=== PATIENT | female | born 1940 | race Caucasian/White ===

== ENCOUNTER → 2016-04-19 | Outpatient (CLI) | payer OTHER ==
--- NOTE | 2016-04-19 17:40 | DX ---
Lumbar spine AP lateral flexion and extension 4 views 0816 hours. History: Left foot drop. Surgery scheduled for May,. Vertebral body heights are well-maintained. In neutral position, there is minimal about 3 mm of poste rior subluxation of L1 on L2 and of L2 on L3 with about 5 mm of anterior subluxation of L3 on L4 and of L5 on S1. This does not change significantly with flexion and extension. There is mild levoscoliosis thoracolumbar junction with associated mild disk space narrowing more pro minent along the inner aspect of the curvature on the right-side of T12-L1 and L1-L2 with mild to mod erate diffuse disk space narrowing at L2-L3, and L3-L4 as well as at L5-S1. The disk at L4-L5 appears relatively normal. Underlying facet hypertrophy is suspected throughout the lumbar spine and is mild in degree except for moderate facet hypertrophy at L4-L5 and L5-S1 bilaterally. There are no lytic o r sclerotic osseous lesions. Impression: 1. Mild subluxations that do not change with flexion and extension as detailed above. 2. Mild to moderate disk space narrowing throughout the lumbar spine except for normal disk appearanc e at L4-L5 although there is facet hypertrophy suspected throughout the lumbar spine most prominent a t L4-L5 and L5-S1.
== END ==
LOC: FIMAGING 08:11
PROVIDERS: ATTEND Neurological Surgery
DX: M43.16 Spondylolisthesis, lumbar region (principal); M48.06 Spinal stenosis, lumbar region; M51.36 Other intervertebral disc degeneration, lumbar region; M41.26 Other idiopathic scoliosis, lumbar region

== ENCOUNTER → 2016-04-19 | Outpatient (CLI) | payer OTHER ==
--- NOTE | 2016-04-19 15:33 | MR ---
MRI of the Lumbar Spine (Without Contrast) Clinical Indications: Evaluate for lumbar spinal stenosis. Technique: Sagittal and axial T1 and T2 MR sequences of the lumbar spine without contrast. Findings: T12-L1: Disk desiccation with broad-based central and right paracentral disk bulging, contributing to mild right neural foraminal stenosis. Central canal is preserved. L1-L2: Disk desiccation and broad-based annular bulging, without discrete disk prolapse or neural imp ingement. L2-L3: Disk desiccation and moderate intervertebral disk height loss, with mild acquired central gail l stenosis, without discrete disk prolapse or neural impingement. Foramina remain patent, with mild r ight-sided foraminal stenosis. L3-L4: 4 mm degenerative anterolisthesis of L3 upon L4, associated with broad-based annular bulging a nd ligamentum flavum and facet degenerative hypertrophy, with secondary severe acquired central canal stenosis. There is tethering of the cauda equina within the thecal sac. L4-L5: Disk desiccation and annular bulging anteriorly with ligamentum flavum and facet degenerative hypertrophy posteriorly, contributing to severe acquired central canal stenosis. The neural foramina are moderately stenotic bilaterally, secondary to annular bulging. L5-S1: Minimal degenerative anterolisthesis of L5 upon S1, with broad-based annular bulging, with sec ondary moderate acquired central canal stenosis. Neural foramina are mildly narrow bilaterally, secon teresa to annular bulging and grade 1 spondylolisthesis. Impression: 1. Multilevel lumbar degenerative disk disease. There is severe acquired central canal stenosis at L3 -L4 with tethering of the cauda equina. Severe central canal stenosis also present at L4-L5. 2. Moderate acquired central canal stenosis at L5-S1, associated with grade 1 spondylolisthesis and b ilateral neural foraminal stenosis. 3. Other level findings as above.
== END ==
LOC: FIMAGING 07:00
PROVIDERS: ATTEND Neurological Surgery
DX: M43.16 Spondylolisthesis, lumbar region (principal); M51.36 Other intervertebral disc degeneration, lumbar region; M41.26 Other idiopathic scoliosis, lumbar region; M48.06 Spinal stenosis, lumbar region

== ENCOUNTER → 2016-04-25 | Outpatient (CLI) | payer OTHER | LOC: BHFA 08:30 | PROVIDERS: ATTEND Internal Medicine Cardiovascular Disease | DX: I25.10 Atherosclerotic heart disease of native coronary artery without angina pectoris (principal) | CPT/HCPCS: 78452; 93017; A9500 ==

== ENCOUNTER → 2016-04-27 | Outpatient (CLI) | payer OTHER | LOC: BHFA 09:15 | PROVIDERS: ATTEND Internal Medicine Cardiovascular Disease | DX: I25.10 Atherosclerotic heart disease of native coronary artery without angina pectoris (principal) ==

== ENCOUNTER 2016-05-10 08:55 | Inpatient (IN) | payer OTHER ==
[~2016-05-10 08:55] MED LIST: CHLORHEXIDINE GLUC HIBICLENS 118 ML BTL TP ONE; ceFAZolin 2 GM/DEXTROSE 100 ML IV ONE
[2016-05-10] MEDS ORDERED: DEXMEDETOMIDINE HCL 200 MCG/2 ML VIAL IV ONE (09:35)
[2016-05-10] MEDS ORDERED: CEFAZOLIN 2 GM/DEXTROSE/100 ML BAG IV ONE (09:52)
[2016-05-10] MEDS ORDERED: LR 1,000 ML IV ONE (10:19)
[2016-05-10] MEDS ORDERED: LOPERAMIDE HCL 2 MG CAP PO PRN (11:02)
[2016-05-10] MEDS ORDERED: LACTULOSE 20 GM/30 ML UDCUP PO PRN (11:02)
[2016-05-10] MEDS ORDERED: NALOXONE HCL 0.4 MG/ML INJ IVP PRN (11:02)
[2016-05-10] MEDS ORDERED: TEMAZEPAM 15 MG CAP PO PRN (11:02)
[2016-05-10] MEDS ORDERED: POLYETHYLENE GLYCOL 3350 17 GM PKT PO PRN (11:02)
[2016-05-10] MEDS ORDERED: DIAZEPAM 10 MG/2 ML SYR IVP PRN (11:02)
[2016-05-10] MEDS ORDERED: BISACODYL 10 MG SUPP PR PRN (11:02)
[2016-05-10] MEDS ORDERED: ONDANSETRON 4 MG/2 ML VIAL IVP PRN (11:02)
[2016-05-10] MEDS ORDERED: diphenhydrAMINE 25 MG CAP PO PRN (11:02)
[2016-05-10] MEDS ORDERED: HYDROmorphONE/DILAUDID 1 MG/ML SYR IVP PRN (11:02)
[2016-05-10] MEDS ORDERED: MAGNESIUM HYDROXIDE 30 ML UDCUP PO PRN (11:02)
[2016-05-10] MEDS ORDERED: BUPIVACAINE/EPI 0.25% 30 ML SDV ONE (11:04)
[2016-05-10] MEDS ORDERED: THROMBIN (RECOMBINANT) 5,000 UNIT VIAL TP ONE (11:04)
[2016-05-10] MEDS ORDERED: BACITRACIN 50,000 UNITS/10 ML SYR IRR ONE ×3 (11:05→14:32)
[2016-05-10] MEDS ORDERED: MIDAZOLAM 2 MG/2 ML VIAL ONE (11:19)
[2016-05-10] MEDS ORDERED: DEXAMETHASONE 4 MG/ML VIAL ONE (11:25)
[2016-05-10] MEDS ORDERED: LIDOCAINE 2% 5 ML SDV ONE (11:25)
[2016-05-10] MEDS ORDERED: ROCURONIUM 50 MG/5 ML VIAL ONE (11:25)
[2016-05-10] MEDS ORDERED: KETAMINE 100 MG/10 ML SYR IVP ONE (11:26)
[2016-05-10] MEDS ORDERED: PROPOFOL/EMULSION 500 MG/50 ML BOTTLE IV ONE ×4 (11:26→15:41)
[2016-05-10] MEDS ORDERED: fentaNYL 250 MCG/5 ML INJ ONE (11:26)
[2016-05-10] MEDS ORDERED: epHEDrine SULFATE 10 MG/ML SYR ONE (11:46)
[2016-05-10] MEDS ORDERED: GLYCOPYRROLATE 0.2 MG/1 ML VIAL ONE (11:47)
[2016-05-10] MEDS ORDERED: PHENYLEPHRINE HCL 100 MCG/ML SYR ONE ×2 (11:57→16:21)
[2016-05-10] MEDS ORDERED: ceFAZolin 1 GM VIAL ONE (14:59)
[2016-05-10] MEDS ORDERED: ALBUMIN 5% 250 ML BOTTLE IV ONE (16:24)
[2016-05-10] MEDS ORDERED: ONDANSETRON 4 MG/2 ML VIAL ONE (17:28)
--- NOTE | 2016-05-10 18:23 | DX ---
Fluoroscopy Indication: Intraoperative. Findings: 6.4 seconds of intraoperative fluoroscopy, 8.37 mGy, was utilized by Dr. Jakob Mtz for [facility] spinal surgery. Additionally, 3 spins were obtained with a total dose of 549 mGy per rotation. Two digital radiographs were obtained to assess for a missing small needle. No definite needle is akshat ntified on the single fluoroscopic study. This information was conveyed to the Operating Room. Orthopedic hardware is in place.
--- NOTE | 2016-05-10 20:01 | POSTOPPROG ---
Post Op Note Date of Operation: 05/10/16 Surgeon: Jef Mtz Subacute Nurse: Reynaldo Camargo PA-C, Yudy Nesbitt PA-C Anesthesia: GET(General Endotracheal) Pre-op Diagnosis: Lumbar stenosis Post-op Diagnosis: Lumbar stenosis Procedure: L3-S1 fusion with decompression Inf/Abcess present in the surg proc area at time of surgery?: No Complications: Durotomy Plan Plan: 75 yo female s/p L3-S1 PSF with decompression, durotomy - neuro checks - lay flat till Sunday morning - no drains - PT/OT and x-rays on hold until can be upright - continue ayala due to immobility Exam Seen in recovery. Requiring BiPAP Moving all extremities
[2016-05-10] MEDS ORDERED: ROSUVASTATIN CALCIUM 20 MG TAB PO SCH (21:00)
[2016-05-10] MEDS: FAMOTIDINE 20 MG/NACL 50 ML IV SCH (21:38)
[2016-05-10] MEDS: NS W/ 20 KCl/L 1,000 ML IV SCH (21:38)
[2016-05-10] MEDS: morphINE SR 15 MG TAB PO SCH (23:01)
[2016-05-10] MEDS: SENNOSIDES/DOCUSATE SODIUM TAB PO SCH (23:01)
[2016-05-10] MEDS: LOSARTAN POTASSIUM 50 MG TAB PO SCH (23:02)
[2016-05-11] MEDS: HYDROmorphONE/DILAUDID 6 MG/30 ML PCA IV PRN (02:04)
[2016-05-11 04:24] LABS: % IMMATURE GRANULYOCYTES 0.3 % (0.0-1.1); ABSOLUTE IMMATURE GRANULOCYTES 0.05 10^3/uL (0.00-0.10); ADD DIFF? NO; ADD MORPH? NO; ADD SCAN? NO; ATYPICAL LYMPHOCYTE FLAG 0 (0-99); FRAGMENT RBC FLAG 0 (0-99); HEMATOCRIT 35.1 % (38.0-47.0); HEMOGLOBIN 11.8 g/dL (12.6-16.3); LEFT SHIFT FLG 0 (0-99); LIPEMIA HEMOLYSIS FLAG 80 (0-99); MEAN CELL HEMOGLOBIN 32.1 pg (27.9-34.1); MEAN CELL HEMOGLOBIN CONCENTR. 33.6 g/dL (32.4-36.7); MEAN CELL VOLUME 95.4 fL (81.5-99.8); MEAN PLATELET VOLUME 10.7 fL (8.7-11.7); PLATELET CLUMPS FLAG 0 (0-99); PLATELET COUNT 171 10^3/uL (150-400); RED BLOOD CELL COUNT 3.68 10^6/uL (4.18-5.33); RED CELL DISTRIBUTION WIDTH 12.3 % (11.5-15.2)
[2016-05-11 04:38] LABS: ANION GAP 4 mEq/L (8-16); CALCIUM 8.2 mg/dL (8.5-10.4); CARBON DIOXIDE 25 mEq/l (22-31); CHLORIDE 111 mEq/L (97-110); CREATININE 0.5 mg/dL (0.6-1.0); GLOMERULAR FILTRATION RATE > 60; GLUCOSE 97 mg/dL (70-100); POTASSIUM 4.3 mEq/L (3.5-5.2); SODIUM 140 mEq/L (134-144)
--- NOTE | 2016-05-11 05:51 | GOP ---
[f rep st] OPERATIVE REPORT DATE OF OPERATION: 05/10/2016 SURGEON: Jakob Mtz MD BOWLING ALLEY MECHANIC: Cooper Camargo PA-C. Secondary operating room assistant, FLORY Augustin. PREOPERATIVE DIAGNOSIS: Lumbar spondylolisthesis with degenerative scoliosis L3-4, L4-5, L5-S1. Sev ere left lower extremity weakness and radiculopathy. Spinal stenosis at L3-4, L4-5, L5-S1. POSTOPERATIVE DIAGNOSIS: Lumbar spondylolisthesis with degenerative scoliosis L3-4, L4-5, L5-S1. Se megha left lower extremity weakness and radiculopathy. Spinal stenosis at L3-4, L4-5, L5-S1, with the addition of dural adhesions rostral arches of each of the lumbar bones L3-L4-L5-S1. PROCEDURE PERFORMED: Posterolateral arthrodesis only L3-4, L4-5, L5-S1 (47722), 53760 x 2, wide lumb ar laminectomy at L3-4, L4-5 for spinal stenosis, and left L5-S1 roz laminectomy for spinal stenosis and foraminal stenosis, with complete facetectomies left L3-4, L4-5, L5-S1 (40865, 33340 x2), repair of large dural defect at the rostral arch of L5 extending down to S1, without additional laminectomy , and repair of 2nd large dural defect with dural graft material at the rostral arch of L4. These du ral defects measured approximately 1 cm x 3 cm at L5-S1, and 1 cm x 14 mm at L4, spanning the width o f the spinal canal at that level, microscope, same incision bone graft harvest, spinal stereotaxy. FINDINGS: ESTIMATED BLOOD LOSS: 500 cc. INDICATIONS: Ms. White is a 75-year-old, with terrible left leg weakness and a degenerative scolioti c curve, and critical spinal stenosis at L3-4, L4-5 and even left foraminal stenosis, L5-S1, who hetal red an attempt to make this better. We suggested an attempt at correcting her degenerative scoliotic curve as well as laminectomies L3-4, L4-5, L5-S1. She understood that the weakness may be permanent , but I was still optimistic that she may regain some of this. Without surgery I felt that it would grow worse. Risk of nerve injury and spinal fluid leak was discussed. She knew there was risk of ps eudoarthrosis, adjacent segment disease, and significant perioperative discomfort. She accepted thes e risks and she wanted to proceed. DESCRIPTION OF PROCEDURE: Patient was taken to the operating room, placed in supine position. Gener al anesthesia was begun. She was flipped prone onto the Hoang table. Care was taken to pad all po ints of contact. Her back was sterilely prepped and draped in the usual fashion. A midline incision was made from the spinous process of L2 down the spinous process of S1. The subcutaneous tissue was dissected and the hypertrophic facet joints bilaterally at L3-4, 4-5, and 5-1 were exposed. We denu ded these and decorticated the transverse processes at L3, L4, L5, and the sacrum. A reference fram e was applied to the spinous process of L5 and an O-arm spin was made. Using frameless Stealth stere otaxy, placed pedicle screws bilaterally at L3, L4, L5, and S1. The screws were all in perfect posit ion. They all stimulated acceptable levels, and an O-arm spin was made confirming their location, wh colette within the pedicles. We took a 90 mm abdoulaye on the left and a100 mm abdoulaye on the right, and distract ed on the left at L3-4 and L4-5, and even at L5-S1. Distract at L5-S1 there was very minimal motion, although there was motion between L5 and S1. There was not any significant tendency of the bone to move more than a mm or so. There was some displacement of the left S1 screw and we actually respun t he O-arm to look at that screw and it was still wholly within the pedicle. L5-S1 simply could not be completely reduced, and we worked at this from a bilateral approach, both on the right and the left. We had corrected on AP imaging on some of her degenerative scoliotic curve that was concave to the left. But because of our failure to completely correct L5-S1, her coronal balance of the segments wa s not perfectly restored, but it was much improved. Her sagittal balance appeared excellent, and she was still in a lordotic posterior. We then removed all the soft tissue of the bone at L3, 4, 5, and the sacrum, and harvested the spinous processes for autologous grafting purposes. We then drilled a nd thinned down all of the bony lamina of L3-4, L4-5, and the left roz lamina of L5 over the L5-S1 l evel for our decompressions. We planned wide decompressions at L3-4, L4-5, and the left L5-S1 level. We then took a curette and the bone had been thinned, and we began in an area of thin bone at the r ostral arch of L5 and simply flaked off a piece of bone. Underneath the bone there was absolutely no dura and there was spinal fluid leaking. This was rather unusual. There was no plane between the b one and the dura. We then worked our way circumferentially around this abnormality but it was actual ly quite difficult to get around, as the entire rostral arch of L5 in the area where there was no lig amentum flavum, was completely adherent to the dura. As I removed this, a large dural rent occurred at the rostral arch of L5, and this extended down through the L5-S1 segment. We then took time to re pair this. It could not be repaired with the dura because the dura itself was resected with the a rodrigue ne along the rostral arch of L5. This was very unusual, how the dura was actually part of L5. We we re able to repair it with [employer] product from [employer] that is a suturable dural replacement produc t, and it was sutured in place with a 6-0 Prolene suture. A watertight closure was obtained. There was a small additional defect centrally measuring just a couple mm after we had sutured this large pa tch in, which took about 40-45 minutes to complete, and we placed a small piece of muscle over the ce ntral 2 mm defect, and placed a stitch there. We then went down to the L5-S1 level, and the S1 root on the left-hand side was compressed by the rostral arch of S1. I began to try to decompress this, b ut once again encountered the same phenomenon at S1. The dura actually blended with the S1 lamina it self. The two were inseparable, in a single unit. I therefore simply thinned the S1 lamina and then fractured the S1 lamina up so that it came up off the left S1 root, but left it in place. This stra tegy did allow me to perform a decompression of this isolated left S1 root, without creating a dural tear there, but there was bilateral adherence to the dura. In other words, the dura itself inserted into the periosteum at S1, just as we had found at L5. We then went up to the L4-5 level and began d ecompressing where there was hypertrophic facet joints and ligamentum flavum, and a nice decompressio n was obtained. But as we worked our way rostrally up to the rostral arch of L4, we discovered the e xact same process. Once again the dura was actually part of the rostral arch of L4. We left this in tact and went to the L3-4 level, where we opened ligamentum flavum and began decompressing here again , and this too was relatively straightforward under the ligamentum flavum. But as we went rostrally toward the rostral arch of L3, the dura once again inserted into the bone of L3. We had discovered t his same phenomenon at L3, L4, L5, and the sacrum; something unique to the patient's anatomy. To com plete our decompression at L3-4, there was very significant spinal stenosis at that level, and we did need to remove the rostral arch of L4, at least the very most rostral arch of L4, but this could not be done because it too was part of the dura. It was my decision to remove the rostral arch of L4 be cause decompression could not be done without doing so, and we did so and indeed once again there was a large dural defect created in this decompressive process. At both of these levels, the lower larg e dural defect created at L5-S1, her arachnoid membrane was rather well-developed and it was easy to keep the lumbosacral nerve roots in the lumbar cistern itself. We did not have difficulty with the n erves tending to come out of the defects. It was actually rather unusual. The nerves did not really want to move within the thecal sac itself. They simply remained in place and this did facilitate re pair as we did not have to fight with the nerves in doing so. We cut another large dural graft and s utured it in place with 6-0 Prolene suture, and this too took about 45 minutes. The patient had been in the operating room, quite a period of time because of the difficulties with her abnormal anatomy, and I did not feel it was prudent to proceed with intervertebral arthrodesis and TLIF at each level. I did not think it would yield much in this case, and I therefore elected to abandon this portion o f the procedure and converted to a posterolateral fusion only, with laminectomies at L3-4, L4-5, and L5-S1. We were able to successfully achieve excellent bony decompression bilaterally at L3-4, bilate rally at L4-5, on the left side at L5-S1, and in the foramen at L3-4, L4-5, L5-S1, and the foramina w ere wide open at the end of the case. The S1, L5, L4, and L3 nerve roots had all been radically deco mpressed. We then decorticated all the remaining visible bone. All the set screws had been torqued to company specification. We Valsalva'd and there was 1 small defect centrally where we had replaced the muscle autograft, centrally at L5-S1, and we placed another suture there. We Valsalva'd and we achieved a watertight closure. We then placed BMP posterolaterally bilaterally from L3 down to the s acrum, and then the incision was actually exceptionally dry. We then closed the incision in multiple layers using Vicryl sutures. The skin was reapproximated nicely. The patient was reversed from ane sthesia, extubated, and transferred to recovery room in stable condition. There were no additional d ifficulties. COMPLICATIONS: Large dural defects at the L4, L5, and S1 levels. All repaired. /[id number]/MODL
--- NOTE | 2016-05-11 08:00 | NEUSURGPN ---
Date of Surgery: 05/10/16 Post Op Day: 1 Assessment/Plan: Assessment: 75 yo female that is s/p L3-S1 fusion and decompression with durotomy POD #1 Plan: -continue with neuro checks -Pt to lay flat till Sunday morning -no drains -PT/OT and x-rays on hold until can be upright -ok for Lovenox per Dr Mtz tonight at 2100 -warning signs given -call with any questions or concerns -take medications as directed -pt seen by Dr Mtz as well today -continue ayala due to immobility -requiring BiPAP Subjective: Awake and alert, NAD. Eating/drinking. Pt with some expected lower back pain. No gonzalez/neck/chest/abd or gu complaints. No f/c/n/v/d. Objective: AAO x 3, PERRLA/EOMI no droop CN 2-12 grossly intact +lt touch 5/5 BUE/BLE = except right EHL at 4/5 CDI no drains Neuro Check Frequency: per routine Urinary Catheter in Place: Yes Urinary Catheter Indication: Surgical Requirement (pt to lay flat til Sunday) Catheter Insertion Date: 05/10/16 - Physician Discussed Patient with DrTeresita: Smith Patient Seen by : Smith Neurosurgery Physical Exam - Vitals, I&O, Labs I and O 05/10/16 05/11/16 05/12/16 05:59 05:59 05:59 Intake Total 4401 Output Total 2520 Balance 1881 Weight 63.4 kg Intake: IV Intake (ml) 3850 IV Infused (ml) 551 NS W/ 20 KCl/L 1,000 ml @ 551 75 mls/hr IV CONT THAO Rx #:[id number] Output: Urine (ml) 2019 Catheter 2020 Estimated Blood Loss (ml) 500 Vital Signs Temp Pulse Resp BP Pulse Ox 36.8 C 73 14 114/56 L 100 05/11/16 07:50 05/11/16 07:50 05/11/16 07:50 05/11/16 07:50 05/11/16 07:50 Laboratory Results 05/11/16 04:20 05/11/16 04:20 ICD10 Worksheet Patient Problems: Problems Problem Status Diagnosed Arthrodesis status Acute CSF leak Acute Inadvertent durotomy Acute Lumbar radicular pain Acute Lumbar stenosis Acute - ICD10 Problem Qualifiers (1) Lumbar stenosis (2) Lumbar radicular pain (3) Arthrodesis status (4) CSF leak (5) Inadvertent durotomy
[2016-05-11] MEDS: FAMOTIDINE 20 MG/NACL 50 ML IV SCH (09:39)
[2016-05-11] MEDS: morphINE SR 15 MG TAB PO SCH ×2 (09:39→20:16)
[2016-05-11] MEDS: SENNOSIDES/DOCUSATE SODIUM TAB PO SCH ×2 (09:39→20:32)
[2016-05-11] MEDS: NS W/ 20 KCl/L 1,000 ML IV SCH (14:07)
--- NOTE | 2016-05-11 16:07 | GCON ---
[f rep st] CONSULTATION PULMONARY/CRITICAL CARE CONSULTATION. DATE OF CONSULTATION: 05/11/2016 REFERRING PHYSICIAN: Dr. Irwin Mtz REASON FOR REFERRAL: Evaluation and management of sleep apnea. HISTORY: The patient is a 75-year-old woman with a history of back pain, for which she has received lumbar spinal injections for several years. Just recently she started to develop some discomfort in her left calf and weakness in her foot. She was seen and evaluated by Dr. Irwin Mtz, who recommende d an L3-S1 fusion with decompression. Unfortunately the dura was attached to the ostium in several p laces and there was a durotomy, so the patient will need to lie flat for several days. She currently states that her pain control is fairly good and she has increased strength and decreased paresthesia s in her leg. She denies nausea or vomiting. PAST MEDICAL HISTORY: 1. History of breast cancer. 2. Aortic aneurysm. 3. Hypertension. 4. Irritable bowel. 5. Obstructive sleep apnea. The patient was diagnosed in 2002 and was treated with CPAP, which she uses regularly. She has not had any recent followup to review CPAP data downloads, but does get new supplies fairly frequently, including mask replacement fairly regularly. MEDICATIONS: Imodium, vitamin B12, aspirin, Crestor, and Cozaar. ALLERGIES: None. SOCIAL HISTORY: The patient lives in [place]. She exercises regularly. She has never smoked. FAMILY HISTORY: Past family history of Alzheimer's and coronary artery disease. REVIEW OF SYSTEMS: A 10-point review of systems adds nothing to history of present illness. PHYSICAL EXAMINATION: GENERAL: The patient is awake, alert, in no acute distress. She is lying fla t in bed. VITAL SIGNS: Her blood pressure is 109/57 with a heart rate of 85, she is afebrile, oxyge n saturations are 95% on 2 L. HEENT: Normocephalic and atraumatic, no icterus. NECK: No JVD, trac hea is midline. CHEST: Clear to auscultation. CARDIAC: Regular rate and rhythm, without murmur. ABDOMEN: Soft, nontender, bowel sounds present. EXTREMITIES: No clubbing, cyanosis, or edema. LABORATORY: A white blood count is 14.4 with a hemoglobin of 11.8, a chemistry group is unremarkable . ASSESSMENT: 1. Status post fusion with laminectomies. The patient has had a good clinical result from this and has minimal pain. 2. Obstructive sleep apnea. The patient is on CPAP for this, and reports good compliance and sympto m control. She gets mask and other supplies regularly, but has not had a review of her CPAP download s that she had recently that she knows of. 3. Hypertension. This is controlled medications and she is currently normotensive. RECOMMENDATIONS: 1. Continue ICU care for durotomy, including lying flat. 2. Follow blood pressure. 3. Use CPAP nightly. The patient use her own CPAP, or this can be supplied by the hospital. 4. I would be happy to see the patient in followup to assess the efficacy of her CPAP device. /[id number]/MODL
[2016-05-11] MEDS: FAMOTIDINE 20 MG TAB PO SCH (20:32)
[2016-05-11] MEDS: LOSARTAN POTASSIUM 50 MG TAB PO SCH (20:33)
[2016-05-11] MEDS: ROSUVASTATIN CALCIUM 10 MG TAB PO SCH (20:33)
[2016-05-11] MEDS: ENOXAPARIN 40 MG/0.4 ML SYR SC SCH (20:33)
[2016-05-12] MEDS: oxyCODONE IR 5 MG TAB PO PRN (02:10)
[2016-05-12] MEDS: NS W/ 20 KCl/L 1,000 ML IV SCH ×2 (03:20→15:25)
[2016-05-12] MEDS: HYDROmorphONE/DILAUDID 6 MG/30 ML PCA IV PRN (07:10)
--- NOTE | 2016-05-12 08:24 | NEUSURGPN ---
Assessment/Plan: 75 yo female that is s/p L3-S1 fusion and decompression with durotomy POD #2 Plan: -continue with neuro checks -Pt to lay flat till Sunday morning -PT/OT and x-rays on hold until can be upright -call with any questions or concerns -DVT prophx: TEDs, SCDs, Lovenox -Pulmonary toilet IS deep breathing -pt seen by Dr Mtz as well today -continue ayala due to immobility Subjective: low back, incisional pain. Denies any headaches, or new leg pain, numbness or tingling Objective: NAD A&Ox3 MAEx4 / and equal in BUE and BLE. Incisional dressing c/d/i Catheter Insertion Date: 05/10/16 - Physician Patient Seen by : Smith Neurosurgery Physical Exam - Vitals, I&O, Labs I and O 05/11/16 05/12/16 05/13/16 05:59 05:59 05:59 Intake Total 4401 2805 Output Total 2520 1300 Balance 1881 1505 Weight 63.4 kg Intake: Oral (ml) 1060 IV Intake (ml) 3850 IV Infused (ml) 551 1745 NS W/ 20 KCl/L 1,000 ml @ 551 1745 75 mls/hr IV CONT THAO Rx #:[id number] Output: Urine (ml) 2020 1300 Catheter 2020 1300 Estimated Blood Loss (ml) 500 Other: Intake Quantity Yes Sufficient Vital Signs Temp Pulse Resp BP Pulse Ox 36.9 C 85 17 141/72 H 98 05/12/16 07:23 05/12/16 07:23 05/12/16 07:23 05/12/16 07:23 05/12/16 07:23 Laboratory Results 05/11/16 04:20 05/11/16 04:20 ICD10 Worksheet Patient Problems: Problems Problem Status Diagnosed Arthrodesis status Acute CSF leak Acute Inadvertent durotomy Acute Lumbar radicular pain Acute Lumbar stenosis Acute
[2016-05-12] MEDS: METHOCARBAMOL 750 MG TAB PO PRN ×3 (09:19→20:36)
[2016-05-12] MEDS: SENNOSIDES/DOCUSATE SODIUM TAB PO SCH ×2 (09:20→20:34)
[2016-05-12] MEDS: ENOXAPARIN 40 MG/0.4 ML SYR SC SCH (09:20)
[2016-05-12] MEDS: morphINE SR 15 MG TAB PO SCH ×2 (09:20→22:28)
[2016-05-12] MEDS: FAMOTIDINE 20 MG TAB PO SCH ×2 (09:20→20:37)
--- NOTE | 2016-05-12 12:31 | PDINTPN ---
Animal Geneticist Progress Note Assessment/Plan: Assessment: S/P multilevel laminectomy with dural disruption: On bedrest through 05/15. Pain well controlled. CHANCE: On CPAP, but did not use last night. HTN: Well-controlled. Plan: Encouraged the patient to use CPAP nightly. Follow BP on current Rx of losartan. Start Melatonin to help reinforce circadian rhythm, minimize risk of delerium. 05/12/16 12:31 Subjective: Feels OK, pain controlled. Didn't use CPAP last night. Poor appetite. Objective: Vital Signs Temp Pulse Resp BP Pulse Ox 36.8 C 92 20 124/67 H 98 05/12/16 12:00 05/12/16 12:00 05/12/16 12:00 05/12/16 12:00 05/12/16 12:00 Laboratory Results 05/11/16 04:20 05/11/16 04:20 05/11/16 05/12/16 05/13/16 05:59 05:59 05:59 Intake Total 4401 2805 Output Total 2520 1300 Balance 1881 1505 Physical Exam - Physical Exam General Appearance: alert, no apparent distress EENT: normal ENT inspection Neck: normal inspection Respiratory: lungs clear, normal breath sounds Cardiac/Chest: regular rate, rhythm, No edema Abdomen: normal bowel sounds, non-tender, soft Skin: normal color, warm/dry Extremities: normal inspection Neuro/Psych: alert, normal mood/affect, oriented x 3 ICD10 Worksheet Patient Problems: Problems Problem Status Diagnosed Arthrodesis status Acute CSF leak Acute Inadvertent durotomy Acute Lumbar radicular pain Acute Lumbar stenosis Acute
[2016-05-12] MEDS: MELATONIN 3 MG TAB PO SCH (20:34)
[2016-05-12] MEDS: ROSUVASTATIN CALCIUM 10 MG TAB PO SCH (20:35)
[2016-05-12] MEDS: BACITRACIN OINTMENT 1 PACKET TP PRN (20:35)
[2016-05-12] MEDS: LOSARTAN POTASSIUM 50 MG TAB PO SCH (20:37)
[2016-05-13] MEDS: METHOCARBAMOL 750 MG TAB PO PRN ×3 (03:43→21:18)
[2016-05-13] MEDS: NS W/ 20 KCl/L 1,000 ML IV SCH ×2 (03:43→15:30)
[2016-05-13] MEDS: ENOXAPARIN 40 MG/0.4 ML SYR SC SCH (08:46)
[2016-05-13] MEDS: FAMOTIDINE 20 MG TAB PO SCH ×2 (08:47→21:17)
[2016-05-13] MEDS: morphINE SR 15 MG TAB PO SCH ×2 (08:48→21:18)
[2016-05-13] MEDS: SENNOSIDES/DOCUSATE SODIUM TAB PO SCH ×2 (08:50→21:17)
[2016-05-13] MEDS ORDERED: ENOXAPARIN 40 MG/0.4 ML SYR SC SCH (09:00)
--- NOTE | 2016-05-13 10:54 | PDINTPN ---
Computer Operations Manager Progress Note Assessment/Plan: Assessment: S/P multilevel laminectomy with dural disruption: On bedrest through 05/15. Pain well controlled. CHANCE: On CPAP, used last night and slept well. HTN: Well-controlled. Plan: Encouraged the patient to use CPAP nightly. Follow BP on current Rx of losartan. Continue Melatonin to help reinforce circadian rhythm, minimize risk of delerium. 05/13/16 10:53 05/13/16 10:54 Subjective: Pain fairly well controlled. Slept well with CPAP, more lucid today. Objective: Vital Signs Temp Pulse Resp BP Pulse Ox 36.5 C 86 18 122/67 H 90 L 05/13/16 10:00 05/13/16 10:00 05/13/16 10:00 05/13/16 10:00 05/13/16 10:00 Laboratory Results 05/11/16 04:20 05/11/16 04:20 05/12/16 05/13/16 05/14/16 05:59 05:59 05:59 Intake Total 2805 2282 Output Total 1300 2950 Balance 1505 -668 Physical Exam - Physical Exam General Appearance: alert, no apparent distress EENT: normal ENT inspection Neck: normal inspection Respiratory: lungs clear, normal breath sounds Cardiac/Chest: regular rate, rhythm, No edema Abdomen: normal bowel sounds, non-tender, soft Skin: normal color, warm/dry Extremities: normal inspection Neuro/Psych: alert, normal mood/affect, oriented x 3 ICD10 Worksheet Patient Problems: Problems Problem Status Diagnosed Arthrodesis status Acute CSF leak Acute Inadvertent durotomy Acute Lumbar radicular pain Acute Lumbar stenosis Acute
[2016-05-13] MEDS: ACETAMINOPHEN 325 MG TAB PO PRN ×2 (15:23→21:17)
--- NOTE | 2016-05-13 16:31 | SOAPPROG ---
SOAP Progress Note Assessment/Plan: Assessment: Continue bed rest allowing the multiple lumbar duraplasty sites to heal properly. She is doing well. Just needs the patience to persist with bedrest. Plan: 05/13/16 16:30 Subjective: Doing well. Leg continues to feel better postop compared to preop. Objective: Vital Signs Temp Pulse Resp BP Pulse Ox 36.9 C 79 18 136/69 H 96 05/13/16 15:43 05/13/16 15:43 05/13/16 15:43 05/13/16 15:43 05/13/16 15:43 Laboratory Results 05/11/16 04:20 05/11/16 04:20 05/12/16 05/13/16 05/14/16 05:59 05:59 05:59 Intake Total 2800 2283 Output Total 1300 2950 1000 Balance 1505 -668 -1000 MAEW ICD10 Worksheet Patient Problems: Problems Problem Status Diagnosed Arthrodesis status Acute CSF leak Acute Inadvertent durotomy Acute Lumbar radicular pain Acute Lumbar stenosis Acute
[2016-05-13] MEDS: ROSUVASTATIN CALCIUM 10 MG TAB PO SCH (21:18)
[2016-05-13] MEDS: MELATONIN 3 MG TAB PO SCH (21:19)
[2016-05-13] MEDS: LOSARTAN POTASSIUM 50 MG TAB PO SCH (21:20)
[2016-05-14] MEDS: ACETAMINOPHEN 325 MG TAB PO PRN (04:58)
[2016-05-14] MEDS: METHOCARBAMOL 750 MG TAB PO PRN ×2 (04:59→12:07)
--- NOTE | 2016-05-14 07:33 | NEUSURGPN ---
Assessment/Plan: 75 yo female that is s/p L3-S1 fusion and decompression with durotomy POD #4 Plan: -continue with neuro checks -Pt to lay flat till Sunday morning, then increase HOB by 10deg/hr -PT/OT and x-rays on hold until can be upright -call with any questions or concerns -DVT prophx: TEDs, SCDs, Lovenox -Pulmonary toilet IS deep breathing -continue ayala due to immobility -Call NS with any issues Subjective: Pt resting in bed. Feeling ok. Objective: AAOx3 NAD VSS MAEx4 Motor 5/5 BLE Incision dressed +LT Urinary Catheter in Place: Yes Urinary Catheter Indication: Surgical Requirement Catheter Insertion Date: 05/11/16 Neurosurgery Physical Exam - Vitals, I&O, Labs I and O 05/13/16 05/14/16 05/15/16 05:59 05:59 05:59 Intake Total 2282 100 Output Total 2950 1850 Balance -668 -1750 Intake: Oral (ml) 500 100 IV Intake (ml) 900 IV Infused (ml) 882 NS W/ 20 KCl/L 1,000 ml @ 882 75 mls/hr IV CONT THAO Rx #:[id number] Output: Urine (ml) 2950 1850 Catheter 2950 1850 Other: Intake Quantity Yes Sufficient Number of Stools Catheter 1 Vital Signs Temp Pulse Resp BP Pulse Ox 36.9 C 79 18 140/80 H 97 05/14/16 04:00 05/14/16 04:00 05/14/16 04:00 05/14/16 04:00 05/14/16 04:00 Laboratory Results 05/11/16 04:20 05/11/16 04:20 ICD10 Worksheet Patient Problems: Problems Problem Status Diagnosed Arthrodesis status Acute CSF leak Acute Inadvertent durotomy Acute Lumbar radicular pain Acute Lumbar stenosis Acute
[2016-05-14] MEDS: ENOXAPARIN 40 MG/0.4 ML SYR SC SCH (09:52)
[2016-05-14] MEDS: FAMOTIDINE 20 MG TAB PO SCH ×2 (09:52→20:11)
[2016-05-14] MEDS: SENNOSIDES/DOCUSATE SODIUM TAB PO SCH ×2 (09:52→20:10)
[2016-05-14] MEDS: HYDROCODONE/APAP 10/325 TAB PO PRN ×3 (09:53→21:10)
[2016-05-14] MEDS: morphINE SR 15 MG TAB PO SCH ×3 (10:02→21:10)
[2016-05-14] MEDS: BACITRACIN OINTMENT 1 PACKET TP PRN (10:14)
[2016-05-14] MEDS: MELATONIN 3 MG TAB PO SCH (20:10)
[2016-05-14] MEDS: ROSUVASTATIN CALCIUM 10 MG TAB PO SCH (20:10)
[2016-05-14] MEDS: LOSARTAN POTASSIUM 50 MG TAB PO SCH (20:11)
[2016-05-14] MEDS: DIAZEPAM 5 MG TAB PO PRN (20:12)
[2016-05-14] MEDS: oxyCODONE IR 5 MG TAB PO PRN (20:15)
--- NOTE | 2016-05-15 07:40 | NEUSURGPN ---
Assessment/Plan: 75 yo female that is s/p L3-S1 fusion and decompression with durotomy POD #5 Plan: -continue with neuro checks -Tolerating increasing HOB by 10deg/hr, currently. at 20 degrees -PT/OT and x-rays on hold until can be upright -call with any questions or concerns -DVT prophx: TEDs, SCDs, Lovenox -Pulmonary toilet IS deep breathing -continue ayala due to immobility, will d/c later today -Call NS with any issues Subjective: Denies any headache, any new leg pain, numbness or tingling. Strength improved from preop Objective: NAD A&Ox3 MAEx4 5/5 and equal in BUE and BLE. dressing flat c/d/i Catheter Insertion Date: 05/10/16 - Physician Discussed Patient with : Smith Neurosurgery Physical Exam - Vitals, I&O, Labs I and O 05/14/16 05/15/16 05/16/16 05:59 05:59 05:59 Intake Total 100 750 Output Total 1849 1949 Balance -1750 -1200 Intake: Oral (ml) 100 750 Output: Urine (ml) 1849 1949 Catheter 1849 1949 Other: Intake Quantity Yes Sufficient Number of Voids Catheter 1 Number of Stools Bedpan 2 Incontinence 2 Vital Signs Temp Pulse Resp BP Pulse Ox 36.6 C 80 18 137/71 H 95 05/14/16 23:31 05/14/16 23:31 05/14/16 23:31 05/14/16 23:31 05/14/16 23:31 Laboratory Results 05/11/16 04:20 05/11/16 04:20 ICD10 Worksheet Patient Problems: Problems Problem Status Diagnosed Arthrodesis status Acute CSF leak Acute Inadvertent durotomy Acute Lumbar radicular pain Acute Lumbar stenosis Acute
[2016-05-15] MEDS: morphINE SR 15 MG TAB PO SCH ×2 (08:20→20:59)
[2016-05-15] MEDS: SENNOSIDES/DOCUSATE SODIUM TAB PO SCH ×2 (08:20→20:50)
[2016-05-15] MEDS: ENOXAPARIN 40 MG/0.4 ML SYR SC SCH (08:21)
[2016-05-15] MEDS: FAMOTIDINE 20 MG TAB PO SCH ×2 (08:21→20:50)
[2016-05-15] MEDS: BACITRACIN OINTMENT 1 PACKET TP PRN (08:32)
[2016-05-15] MEDS: HYDROCODONE/APAP 10/325 TAB PO PRN (11:02)
[2016-05-15] MEDS: METHOCARBAMOL 750 MG TAB PO PRN (15:28)
[2016-05-15] MEDS: MELATONIN 3 MG TAB PO SCH (20:48)
[2016-05-15] MEDS: ROSUVASTATIN CALCIUM 10 MG TAB PO SCH (20:49)
[2016-05-15] MEDS: LOSARTAN POTASSIUM 50 MG TAB PO SCH (20:50)
[2016-05-16] MEDS: HYDROCODONE/APAP 10/325 TAB PO PRN ×4 (02:30→21:44)
[2016-05-16] MEDS: morphINE SR 15 MG TAB PO SCH ×2 (07:44→21:48)
[2016-05-16] MEDS: FAMOTIDINE 20 MG TAB PO SCH ×2 (08:32→21:44)
[2016-05-16] MEDS: SENNOSIDES/DOCUSATE SODIUM TAB PO SCH ×2 (08:32→21:48)
[2016-05-16] MEDS: ONDANSETRON DISINTEGRATING 4 MG TAB PO PRN (08:32)
[2016-05-16] MEDS: ENOXAPARIN 40 MG/0.4 ML SYR SC SCH (08:33)
--- NOTE | 2016-05-16 10:24 | NEUSURGPN ---
Assessment/Plan: 75 yo female that is s/p L3-S1 fusion and decompression with durotomy POD #6 Plan: -continue with neuro checks -Tolerating increasing HOB by 10deg/hr- had mild headache this am but was worse when lying down and better now -PT/OT and x-rays to be done today if ambulating -call with any questions or concerns -DVT prophx: TEDs, SCDs, Lovenox -Pulmonary toilet IS deep breathing -Call NS with any issues Subjective: Patient is doing well. back pain minimal. Currently no headache. Objective: NAD, VSS, BLE 5/5= Sensation intact to lt touch Incision c/d/i Catheter Insertion Date: 05/10/16 - Physician Discussed Patient with : Smith Patient Seen by : Smith Neurosurgery Physical Exam - Vitals, I&O, Labs I and O 05/15/16 05/16/16 05/17/16 05:59 05:59 05:59 Intake Total 750 1750 Output Total 1950 1400 Balance -1200 350 Intake: Oral (ml) 750 1750 Output: Urine (ml) 1950 1400 Catheter 1950 700 Incontinence 700 Other: Number of Voids Catheter 1 1 Number of Stools Bedpan 2 Incontinence 2 Vital Signs Temp Pulse Resp BP Pulse Ox 36.6 C 81 15 129/81 H 93 05/16/16 07:24 05/16/16 07:24 05/16/16 07:24 05/16/16 07:24 05/16/16 07:24 Laboratory Results 05/11/16 04:20 05/11/16 04:20 ICD10 Worksheet Patient Problems: Problems Problem Status Diagnosed Arthrodesis status Acute CSF leak Acute Inadvertent durotomy Acute Lumbar radicular pain Acute Lumbar stenosis Acute
[2016-05-16] MEDS: ROSUVASTATIN CALCIUM 10 MG TAB PO SCH ×2 (21:43→21:44)
[2016-05-16] MEDS: MELATONIN 3 MG TAB PO SCH (21:44)
[2016-05-16] MEDS: LOSARTAN POTASSIUM 50 MG TAB PO SCH (21:47)
[2016-05-17] MEDS: HYDROCODONE/APAP 10/325 TAB PO PRN ×4 (06:16→20:59)
--- NOTE | 2016-05-17 06:52 | NEUSURGPN ---
Date of Surgery: 05/10/16 Post Op Day: 7 Assessment/Plan: Assessment: 75 yo female that is s/p L3-S1 fusion and decompression with durotomy POD #7 Plan: -continue with neuro checks -Tolerating increased HOB-no HAs -pending xrays today -PT/OT -pt seen by Dr Mtz as well today -call with any questions or concerns -DVT prophx: TEDs, SCDs, Lovenox -Pulmonary toilet IS deep breathing -Call NS with any issues Subjective: Awake and alert. NAD. Eating/drinking and voiding. No f/c/n/v/d. No gonzalez/neck/ chest/abd or gu complaints. Objective: NAD, VSS PERRLA/EOMI no droop CN 2-12 grossly intact BLE 5/5= Sensation intact to lt touch Incision c/d/i Neuro Check Frequency: per routine Urinary Catheter in Place: No Catheter Insertion Date: 05/10/16 - Physician Discussed Patient with : Smith Patient Seen by : Smith Neurosurgery Physical Exam - Vitals, I&O, Labs I and O 05/16/16 05/17/16 05/18/16 05:59 05:59 05:59 Intake Total 1750 1300 375 Output Total 1400 1250 Balance 350 50 375 Intake: Oral (ml) 1750 1300 375 Output: Urine (ml) 1400 1250 Catheter 700 750 Incontinence 700 Toilet 500 Other: Intake Quantity Yes Sufficient Number of Voids Catheter 1 Toilet 2 1 Vital Signs Temp Pulse Resp BP Pulse Ox 36.9 C 80 16 134/80 H 97 05/16/16 22:35 05/16/16 22:35 05/16/16 22:35 05/16/16 22:35 05/16/16 22:35 Laboratory Results 05/11/16 04:20 05/11/16 04:20 ICD10 Worksheet Patient Problems: Problems Problem Status Diagnosed Arthrodesis status Acute CSF leak Acute Inadvertent durotomy Acute Lumbar radicular pain Acute Lumbar stenosis Acute - ICD10 Problem Qualifiers (1) Lumbar stenosis (2) Lumbar radicular pain (3) Arthrodesis status (4) CSF leak (5) Inadvertent durotomy
[2016-05-17] MEDS: SENNOSIDES/DOCUSATE SODIUM TAB PO SCH ×2 (07:26→21:00)
[2016-05-17] MEDS: ENOXAPARIN 40 MG/0.4 ML SYR SC SCH (07:27)
[2016-05-17] MEDS: FAMOTIDINE 20 MG TAB PO SCH ×2 (07:27→21:00)
[2016-05-17] MEDS: morphINE SR 15 MG TAB PO SCH ×2 (07:32→21:00)
[2016-05-17] MEDS: ONDANSETRON DISINTEGRATING 4 MG TAB PO PRN ×3 (09:14→18:58)
[2016-05-17] MEDS: oxyCODONE IR 5 MG TAB PO PRN (11:01)
--- NOTE | 2016-05-17 16:30 | DX ---
Lumbar Spine, 2 standing views History: Postop hardware check Comparison: April 19, 2016 Findings: Bilateral posterior fusion hardware including transpedicular screws and vertical supporting rods between L3 and S1 are in excellent position. There has been laminar surgery of L3, L4 and L5. T here is no evidence of hardware uncoupling or fracture. Lumbar alignment is stable with a mild spondy lolisthesis at L3-L4 and L5-S1. There is a stable scoliosis concave to the right centered at the thor acolumbar junction. A mild T12 compression is unchanged. Narrowing of the L1-L2 disk space is unchang ed. There is stable atherosclerotic calcification of the normal sized abdominal aorta. Impression: Excellent stable postoperative alignment. Hardware is intact.
[2016-05-17] MEDS: DIAZEPAM 5 MG TAB PO PRN (21:00)
[2016-05-17] MEDS: MELATONIN 3 MG TAB PO SCH (21:00)
[2016-05-17] MEDS: LOSARTAN POTASSIUM 50 MG TAB PO SCH (21:00)
[2016-05-17] MEDS: ROSUVASTATIN CALCIUM 10 MG TAB PO SCH (21:03)
[2016-05-18] MEDS: HYDROCODONE/APAP 10/325 TAB PO PRN ×3 (06:14→12:56)
--- NOTE | 2016-05-18 07:41 | NEUSURGPN ---
Assessment/Plan: Assessment: 75 yo female that is s/p L3-S1 fusion and decompression with durotomy POD #8 Plan: -continue with neuro checks -Tolerating increased HOB-no HAs -xrays show good hardware placement -PT/OT -pt seen by Dr Mtz as well today -call with any questions or concerns -DVT prophx: TEDs, SCDs, Lovenox -Pulmonary toilet IS deep breathing -Dispo-SNF placement pending, could dc today if SNF bed found -Call NS with any issues Subjective: Patient doing well, has some left leg pain that comes and goes. Getting easier to walk once up. Denies fever, chills, cough. Objective: NAD< VSS BLE 5/5= Sensation intact to lt touch Incision c/d/i Catheter Insertion Date: 05/10/16 - Physician Discussed Patient with : Smith Patient Seen by : Smith Neurosurgery Physical Exam - Vitals, I&O, Labs I and O 05/17/16 05/18/16 05/19/16 05:59 05:59 05:59 Intake Total 1300 1325 Output Total 1250 Balance 50 1325 Intake: Oral (ml) 1300 1325 IV Intake (ml) 0 Output: Urine (ml) 1250 Catheter 750 Toilet 500 Other: Intake Quantity Yes Sufficient Number of Voids Toilet 2 4 Vital Signs Temp Pulse Resp BP Pulse Ox 36.6 C 71 12 132/74 H 98 05/17/16 23:43 05/17/16 23:43 05/17/16 23:43 05/17/16 23:43 05/17/16 23:43 Laboratory Results 05/11/16 04:20 05/11/16 04:20 ICD10 Worksheet Patient Problems: Problems Problem Status Diagnosed Arthrodesis status Acute CSF leak Acute Inadvertent durotomy Acute Lumbar radicular pain Acute Lumbar stenosis Acute
[2016-05-18 07:56] VITALS: BP 129/76; PULSE 80; RESP 18; TEMP 98.4; O2SAT 91
[2016-05-18] MEDS: SENNOSIDES/DOCUSATE SODIUM TAB PO SCH (08:05)
[2016-05-18] MEDS: FAMOTIDINE 20 MG TAB PO SCH (08:05)
[2016-05-18] MEDS: ENOXAPARIN 40 MG/0.4 ML SYR SC SCH (08:06)
[2016-05-18] MEDS: morphINE SR 15 MG TAB PO SCH (08:18)
[2016-05-18] MEDS: ONDANSETRON DISINTEGRATING 4 MG TAB PO PRN ×2 (11:18→16:17)
--- NOTE | 2016-05-18 12:57 | PDIAF ---
- Diagnosis Code Status: Full Code - Medication Management Discharge Medications: Medications to Continue on Transfer Cholecalciferol Vit D3 [Vitamin D3 2000 units tab (OTC)] 2,000 units PO HS 04/11 [Last Taken 1 Week Ago] Cyanocobalamin [Vitamin B12 (*)] 5,000 mcg PO Q7D 04/11/16 [Last Taken 1 Week Ago] Herbals/Supplements -Info Only 1 each PO DAILY 04/11/16 [Last Taken 1 Week Ago] Loperamide HCl [Imodium 2 mg (*)] 2 mg PO HS PRN 04/11/16 [Last Taken 05/09/16] Losartan Potassium [Cozaar 50 mg (*)] 50 mg PO HS 04/11/16 [Last Taken 05/08/16] Rosuvastatin Calcium [Crestor 20mg (*)] 5 mg PO HS 04/11/16 [Last Taken 05/09/16 ] Diazepam [Valium 5 MG (*)] 2.5 - 5 mg PO QID PRN #0 tab 05/18/16 [Last Taken Unknown] Enoxaparin [Lovenox 40 MG (*)] 40 mg SC DAILY #0 syr 05/18/16 [Last Taken Unknown] Famotidine [Pepcid 20 MG (*)] 20 mg PO BID #0 tab 05/18/16 [Last Taken Unknown] HYDROcodone/APAP 10/325 [[place] 10/325 (*)] 1 - 2 tab PO Q6HRS PRN #0 tab [Last Taken Unknown] Melatonin [Melatonin 3 MG (*)] 1.5 mg PO HS #0 tab 05/18/16 [Last Taken Unknown] Methocarbamol [Robaxin 750 mg (*)] 750 mg PO QID PRN #0 tab 05/18/16 [Last Taken Unknown] Ondansetron Odt [Zofran Odt 4 mg (*)] 4 - 8 mg PO Q6HRS PRN #0 tab 05/18/16 [ Last Taken Unknown] Polyethylene Glycol 3350 [Miralax 17 gm (*)] 17 gm PO DAILY PRN #0 pkt 05/18/16 [Last Taken Unknown] Sennosides/Docusate Sodium [Senokot-S] 1 - 2 tab PO BID #0 tab 05/18/16 [Last Taken Unknown] Temazepam [Restoril 15 MG (*)] 15 - 30 mg PO HS PRN #0 cap 05/18/16 [Last Taken Unknown] morphINE SR [Ms Contin/Oramorph 15 mg (*)] 15 mg PO BID #0 tab 05/18/16 [Last Taken Unknown] oxyCODONE IR [Oxycodone Ir (*)] 5 mg PO Q3HRS PRN #0 tab 05/18/16 [Last Taken Unknown] Detention Antibiotics: n/a Discharge Medications: Refer to the Discharge Home Medication list for PRN reason. - Orders Services needed: Home Care, Registered Nurse, Physical Therapy, Occupational Therapy Home Care Face to Face: I certify that this patient was under my care and that I had the required [id number] encounter meeting the encounter requirements on the discharge day. My findings support the fact that the patient is homebound as defined in CMS Chapter 7 Medicare Benefits Manual 30.1.1, The condition of the patient is such that there exists a normal inability to leave home and consequently, leaving home would require a considerable and taxing effort. Diet Recommendation: no restrictions on diet Diet Texture: Regular Texture Diet Mike Stockings Discontinue Date: as soon as she is walking 100 yards 3 times per day Wound Care Instructions: No bending at the waist, lifting, or twisting more than 5-10 pounds. Wear your brace when you are OOB. Monitor your incision for signs of infection, drainage, fever, chills. Change dressing daily. may shower ,no scrubbing incision, keep showers short 5-7 minutes, keep incision clean and dry. Follow up with Dr. Mtz in 2 weeks Activity/Weight Bearing Restrictions: No bending at the waist, lifting, or twisting more than 5-10 pounds. Wear your brace when you are OOB. Monitor your incision for signs of infection, drainage, fever, chills. Change dressing daily. may shower,no scrubbing incision, keep showers short 5-7 minutes, keep incision clean and dry. Follow up with Dr. Mtz in 2 weeks - Follow Up Care Current Providers and Referrals: Lloyd Rodgers MD [Primary Care Provider] - Jef Mtz MD [Medical Doctor] - follow up in 2 weeks
== END 2016-05-18 16:41 | DRG 460 ==
LOC: F3E 08:55 → F3N 09:03 → F2N 20:34 → F3N 05-13 13:35
PROVIDERS: ADMIT Neurological Surgery; ATTEND Neurological Surgery
PROC: 00NY0ZZ Release Lumbar Spinal Cord, Open Approach (ICD-10-PCS; principal; 2016-05-10 10:30)
PROC: 0SG30AJ Fusion of Lumbosacral Joint with Interbody Fusion Device, Posterior Approach, Anterior Column, Open Approach (ICD-10-PCS; principal; 2016-05-10 10:30)
PROC: 01NB0ZZ Release Lumbar Nerve, Open Approach (ICD-10-PCS; principal; 2016-05-10 10:30)
PROC: 0SG10AJ Fusion of 2 or more Lumbar Vertebral Joints with Interbody Fusion Device, Posterior Approach, Anterior Column, Open Approach (ICD-10-PCS; principal; 2016-05-10 10:30)
PROC: 4A1004G Monitoring of Central Nervous Electrical Activity, Intraoperative, Open Approach (ICD-10-PCS; principal; 2016-05-10 10:30)
PROC: 00Q20ZZ Repair Dura Mater, Open Approach (ICD-10-PCS; principal; 2016-05-10 10:30)
DX: M43.16 Spondylolisthesis, lumbar region (principal); G97.41 Accidental puncture or laceration of dura during a procedure; M41.86 Other forms of scoliosis, lumbar region; M41.87 Other forms of scoliosis, lumbosacral region; M54.16 Radiculopathy, lumbar region; M54.17 Radiculopathy, lumbosacral region; I10 Essential (primary) hypertension; I25.10 Atherosclerotic heart disease of native coronary artery without angina pectoris; G47.33 Obstructive sleep apnea (adult) (pediatric); I71.4 Abdominal aortic aneurysm, without rupture; K58.9 Irritable bowel syndrome, unspecified
CPT/HCPCS: 97116-GP; 97161-GP; 97165-GO; 97530-GP; 97535-GO; C1713; G8978-GP-CJ; G8979-GP-CI; G8987-GO-CK; G8988-GO-CI; J0690; J1100; J1170; J1650; J2250; J2370; J2405; J2704; J3010; P9041

== ENCOUNTER → 2016-07-05 | Outpatient (CLI) | payer OTHER | LOC: FIMAGING 12:27 | DX: Z09 Encounter for follow-up examination after completed treatment for conditions other than malignant neoplasm (principal); Z98.1 Arthrodesis status ==

== ENCOUNTER → 2016-11-13 | Outpatient (CLI) | payer OTHER | LOC: FIMAGING 16:04 | PROVIDERS: ATTEND Neurological Surgery | DX: Z09 Encounter for follow-up examination after completed treatment for conditions other than malignant neoplasm (principal); Z98.1 Arthrodesis status; M41.85 Other forms of scoliosis, thoracolumbar region; M43.17 Spondylolisthesis, lumbosacral region; I70.0 Atherosclerosis of aorta ==

== ENCOUNTER → 2017-02-19 | Outpatient (CLI) | payer OTHER | LOC: FIMAGING 14:46 | PROVIDERS: ATTEND Physician Assistant | DX: Z09 Encounter for follow-up examination after completed treatment for conditions other than malignant neoplasm (principal); Z98.1 Arthrodesis status ==

== ENCOUNTER → 2017-03-07 | Outpatient (CLI) | payer OTHER | LOC: FIMAGING 15:53 | PROVIDERS: ATTEND Physician Assistant | DX: M51.34 Other intervertebral disc degeneration, thoracic region (principal); M51.36 Other intervertebral disc degeneration, lumbar region; M48.04 Spinal stenosis, thoracic region; M48.05 Spinal stenosis, thoracolumbar region; M48.061 Spinal stenosis, lumbar region without neurogenic claudication; M46.96 Unspecified inflammatory spondylopathy, lumbar region; M46.95 Unspecified inflammatory spondylopathy, thoracolumbar region; M48.07 Spinal stenosis, lumbosacral region; Z98.1 Arthrodesis status ==

== ENCOUNTER → 2017-04-30 | Outpatient (CLI) | payer OTHER | LOC: BHFA 14:45 | PROVIDERS: ATTEND Internal Medicine Cardiovascular Disease | DX: I34.0 Nonrheumatic mitral (valve) insufficiency (principal) ==

== ENCOUNTER → 2017-05-21 | Outpatient (CLI) | payer OTHER | LOC: FIMAGING 13:19 | PROVIDERS: ATTEND Physician Assistant | DX: Z47.89 Encounter for other orthopedic aftercare (principal); Z98.1 Arthrodesis status ==

== ENCOUNTER → 2017-09-17 | Outpatient (CLI) | payer OTHER | LOC: FIMAGING 19:37 | PROVIDERS: ATTEND Internal Medicine | DX: R05 Cough (principal) ==

== ENCOUNTER → 2018-02-20 | Outpatient (CLI) | payer OTHER | LOC: FIMAGING 09:58 | PROVIDERS: ATTEND Internal Medicine | DX: I71.4 Abdominal aortic aneurysm, without rupture (principal) ==

== ENCOUNTER → 2018-07-15 | Outpatient (CLI) | payer OTHER | LOC: FIMAGING 12:32 | PROVIDERS: ATTEND Neurological Surgery | DX: M54.16 Radiculopathy, lumbar region (principal); M53.3 Sacrococcygeal disorders, not elsewhere classified; Z98.1 Arthrodesis status ==